=== PATIENT | female | born 1960 | race Hispanic/Latino ===

== ENCOUNTER 2016-09-01 07:36 | Observation (INO) | payer BC, MEDICAID ==
[2016-09-01 07:46] VITALS: BMI 32.5
--- NOTE | 2016-09-01 08:38 | C.PDOC ---
History Of Present Illness 56 yr old female presents to the ER with complaints of worsening abdominal pain for the past 1 week. Patient states she saw her PMD for same complaint and states she is s/p outpatient abdominal ultrasound but is pending follow up results. Patient states the pain is localized in lower abdominal and has had similar pain daily for the past 1 year but is now constant and intense. Patient reports new onset of intermittent diarrhea/constipation for the past 2 weeks and new onset of black bowel movement for the past 3 weeks. States he has been using peptobismol but black bowel movement began before pepto use. Patient is s/ p colonoscopy and ENDO, states had a polyp removal only. Patient denies fever, dysuria, incontinence, hematuira, back pain, weakness or numbness. WORSENING ABD PAIN X 1 WEEK. SAW PMD FOR SAME S/P OUTPT ABD US BUT WAS PENDING FU FOR RESULTS. PAIN LOWER ABD LOCALIZED. HAS HAD SIM PAIN DAILY X 1 YEAR BUT NOW MORE CONSTANT AND INTENSE. NEW ONSET INTERMIT DIARRHEA/CONSTIPATION X 2 WEEKS. NEW ONSET BLACK BM X 3 WEEKS. USING PEPTOBISMOL BUT BLACK BM ONSET BEGAN BEFORE PEPTO USE. S/P COLONSCOPY AND ENDO, PS POLYP REMOVAL ONLY. PSH YAQUELIN. DENIES UTI SX. HO MID ABD HERNIA FOR 6 MONTHS. DENIES PAIN IN AREA, LAST BM 2 DAYS AGO EXAM MILD DIST NONTOXIC LUNGS CTA B/L NO W/R/R ABD +REDUCIBLE VENTRAL HERNIA NONTEND. +B/L LQ TEND MILD SOFT NO R/G. OBESE REMAINDER NEG Time Seen by Provider: 09/01/16 08:25 Chief Complaint (Nursing): Abdominal Pain History Per: Patient History/Exam Limitations: no limitations Onset/Duration Of Symptoms: Worse Since (1 week ) Current Symptoms Are (Timing): Still Present Location Of Pain/Discomfort: Diffuse Past Medical History Reviewed: Historical Data, Nursing Documentation, Vital Signs Vital Signs: Last Vital Signs Temp 98.4 F 09/01/16 07:46 Pulse 84 09/01/16 09:30 Resp 16 09/01/16 09:30 BP 116/67 09/01/16 09:30 Pulse Ox 95 09/01/16 13:17 - Medical History PMH: Arthritis, Diverticulitis (diverticulosis) Surgical History: Cholecystectomy, Endoscopy - [facility] Procedures CHOLECYSTECTOMY (09/28/12) CLOSED ENDOSCOPIC BIOPSY OF LARGE INTESTINE (04/12/14) ENDO RECTUM POLYPECTOMY (04/12/14) ENDOSC POLYPECTOMY OF LG INTEST (04/12/14) ESOPHAGOGASTRODUODENOSCOPY [EGD] W/CLOSED BIOPSY (09/28/12) Family History: States: No Known Family Hx - Social History Hx Tobacco Use: Yes Hx Alcohol Use: Yes Hx Substance Use: No - Immunization History Hx Tetanus Toxoid Vaccination: No Hx Influenza Vaccination: No Hx Pneumococcal Vaccination: No Review Of Systems Except As Marked, All Systems Reviewed And Found Negative. Constitutional: Negative for: Fever Gastrointestinal: Positive for: Abdominal Pain, Diarrhea, Constipation Neurological: Negative for: Weakness, Numbness Physical Exam - Physical Exam Appears: Non-toxic, In Acute Distress (Mild ) Skin: Warm, Dry Head: Atraumatic, Normacephalic Chest: Symmetrical Cardiovascular: Rhythm Regular, No Murmur Respiratory: Normal Breath Sounds, No Rales, No Rhonchi, No Wheezing Gastrointestinal/Abdominal: Soft, Tenderness (Bilateral lower quadrent tenderness, mild. ), No Guarding, No Rebound, Hernia (reducible ventral hernia, non tender. ), Other ((+) Obese ) Extremity: Normal ROM, No Swelling Neurological/Psych: Oriented x3, Normal Speech, Normal Motor ED Course And Treatment - Laboratory Results Result Diagrams: 09/01/16 09:26 09/01/16 09:26 ECG: Interpreted By Me, Viewed By Wy ECG Rhythm: Sinus Rhythm ECG Interpretation: No Acute Changes Rate From EC (BPM ) O2 Sat by Pulse Oximetry: 95 (RA ) Pulse Ox Interpretation: Normal - Other Rad CXR X-Ray: Viewed By Wy, Read By Radiologist Interpretation: PROCEDURE: CHEST RADIOGRAPH, 1 VIEW. HISTORY: Abdominal pain. COMPARISON: 08/06/2014. FINDINGS: LUNGS: Biapical pleural thickening. Moderate venous congestion. Diffuse increased interstitial lung markings. Right hilar prominence. PLEURA: No pneumothorax or pleural fluid seen. CARDIOVASCULAR: Normal. OSSEOUS STRUCTURES: No significant abnormalities. VISUALIZED UPPER ABDOMEN: Normal. OTHER FINDINGS: None. IMPRESSION: Biapical pleural thickening. Moderate venous congestion. Diffuse increased interstitial lung markings. Right hilar prominence. - CT Scan/US CT - Abd & Pelvis Other Rad Studies (CT/US): Read By Radiologist, Radiology Report Reviewed CT/US Interpretation: PROCEDURE: CT Abdomen and Pelvis with contrast. HISTORY : abd pain. COMPARISON: 03/05/2015. TECHNIQUE: Contrast dose: 100 mL Visipaque 320. Radiation dose: Total exam DLP = 1203.84 mGy-cm. This CT exam was performed using one or more of the following dose reduction techniques: Automated exposure control, adjustment of the mA and/or kV according to patient size, and/or use of iterative reconstruction technique. FINDINGS: LOWER THORAX : Multifocal confluent ground-glass opacity in both lower lobes, nonspecific. Possibly infectious versus inflammatory. Small areas of héctor consolidation in both lower lobes. Small hiatal hernia noted. LIVER: Unremarkable. No gross lesion or ductal dilatation. GALLBLADDER AND BILE DUCTS: Status post cholecystectomy. Mild dilatation of common bile duct up to 9 mm. Consistent with prior cholecystectomy. Small amount of air seen adjacent to distal common bile duct, possibly due to duodenal diverticulum. This finding is unchanged compared to prior examination. PANCREAS: Unremarkable. No gross lesion or ductal dilatation. SPLEEN: Normal size. 1.5 cm ovoid low-attenuation lesion. In retrospect, on noncontrast CT, there was 12 mm low-attenuation lesion. Comparison is made between contrast enhanced and noncontrast study of, of limited significance for determination of interval change. Likely hemangioma or lymphangioma. No other mass. ADRENALS: Unremarkable. No mass. KIDNEYS AND URETERS: Unremarkable. No hydronephrosis. No solid mass. Homogeneous parenchymal enhancement. No evidence of pyelonephritis. VASCULATURE: Unremarkable. No aortic aneurysm. BOWEL: Acute diverticulitis at the junction of the descending and sigmoid colon. No evidence of abscess. No free intraperitoneal air. There is extensive diverticulosis of the descending and sigmoid colon. Scattered colonic diverticulae elsewhere. There are no other abnormal bowel loops identified. There is no evidence of bowel obstruction. APPENDIX: Normal appendix. PERITONEUM: There is a supraumbilical ventral hernia containing a loop of nonobstructed transverse colon. There is no inguinal hernia. LYMPH NODES: Unremarkable. No enlarged lymph nodes. BLADDER : Unremarkable. REPRODUCTIVE: Normal uterus. BONES: Mild thoracolumbar levoscoliosis. OTHER FINDINGS: None. IMPRESSION: Multifocal ground-glass opacity with small areas of confluent opacity in both lower lobes and in the right middle lobe. Concerning for an infectious process. Acute diverticulitis at the junction of the descending and sigmoid colon without evidence of abscess or free air. Incidental findings as above. Medical Decision Making Medical Decision Making: PLAN: * CT - Abd & Pelvis * CXR * EKG * CBC * CMP * Urinalysis * Morphine IVP * Zofran IVP * Sodium Chloride IV ED OBSERVATION Discharge: Yes Date of observation admission: 09/01/16 Time of observation admission: 08:00 - Observation admission statement Patient is being placed in observation because:: ABD PAIN, NAUSEA - Goals of Observation Goals of observation are:: NEG S/S ACUTE SURG ABD; SX IMPROVE - Progress Note Progress Note: 09/01/16 13:21 FEELS BETTER. ABD NEG VSS 09/01/16 13:[address] FINDINGS ADVISED FU LUNG CT FINDINGS W PMD Disposition Counseled Patient/Family Regarding: Studies Performed, Diagnosis, Need For Followup, Rx Given - Disposition Disposition: HOME/ ROUTINE Disposition Time: 13:21 Condition: IMPROVED - Clinical Impression Clinical Impression: Diverticulitis, Abnormal chest CT - Scribe Statement The provider has reviewed the documentation as recorded by the Shani Mac Provider Attestation: All medical record entries made by the Shani were at my direction and personally dictated by me. I have reviewed the chart and agree that the record accurately reflects my personal performance of the history, physical exam, medical decision making, and the department course for this patient. I have also personally directed, reviewed, and agree with the discharge instructions and disposition.
[2016-09-01] MEDS ORDERED: Iohexol 240 (50 ml) PO STA (08:46)
[2016-09-01] MEDS ORDERED: Sodium Chloride 0.9% 1,000 ML IV ONE (08:46)
[2016-09-01] MEDS ORDERED: Iohexol 240 (50 ml) ONE (08:58)
[2016-09-01] MEDS ORDERED: Morphine 4 MG/ML VIAL ONE (08:59)
[2016-09-01 09:30] LABS: BASO # 0.1 K/uL (0.0-0.2); BASO % 0.8 % (0.0-2.0); EOS # 0.1 K/uL (0.0-0.7); EOS % 2.2 % (0.0-4.0); HEMATOCRIT 44.2 % (34.0-47.0); LYMPH # 1.2 K/uL (1.0-4.3); LYMPH % 19.5 % (20.0-40.0); MEAN CORPUSCULAR HEMOGLOBIN 30.3 pg (27.0-31.0); MEAN CORPUSCULAR HGB CONC 34.5 g/dL (33.0-37.0); MEAN PLATELET VOLUME 7.9 fL (7.2-11.7); MONO # 0.6 K/uL (0.0-0.8); MONO % 9.3 % (0.0-10.0); NRBC % 0.1 % (0.0-2.0); RED CELL DISTRIBUTION WIDTH 13.3 % (11.5-14.5); WHITE BLOOD COUNT 6.1 K/uL (4.8-10.8)
[2016-09-01 09:31] VITALS: RESP 16
[2016-09-01 09:35] LABS: MEAN CELL VOLUME 87.9 fL (81.0-99.0)
[2016-09-01 09:37] LABS: CHLORIDE 102 mmol/L (98-107)
[2016-09-01 09:38] LABS: POTASSIUM 4.4 mmol/L (3.6-5.2); SODIUM 137 mmol/L (132-148)
[2016-09-01 09:40] LABS: ALB/GLOB RATIO 0.7 (1.0-2.1); ALKALINE PHOSPHATASE 93 U/L (38-126); ALT/SGPT 37 U/L (9-52); AST/SGOT 55 U/L (14-36); BILIRUBIN,TOTAL 0.8 mg/dL (0.2-1.3); BLOOD UREA NITROGEN 10 mg/dL (7-17); CARBON DIOXIDE 24 mmol/L (22-30); GFR AFRICAN-AMERICAN > 60; GLUCOSE,RANDOM 94 mg/dL (65-105); TOTAL PROTEIN 9.2 g/dL (6.3-8.3)
[2016-09-01 09:41] LABS: CALCIUM 9.3 mg/dl (8.6-10.4)
[2016-09-01 09:45] LABS: RBC URINE 1 /hpf (0-3); URINE BACTERIA RARE (<OCC); URINE BILIRUBIN NEGATIVE (NEGATIVE); URINE BLOOD NEGATIVE (NEGATIVE); URINE COLOR Yellow (YELLOW); URINE GLUCOSE (UA) NORMAL (Normal); URINE KETONE NEGATIVE (NEGATIVE); URINE LEUKOCYTE ESTERASE 2+ Leu/uL (Negative); URINE PROTEIN NEGATIVE (NEGATIVE); URINE UROBILINOGEN NORMAL mg/dL (0.2-1.0); WBC URINE 11 /hpf (0-5)
[2016-09-01] MEDS ORDERED: Iodixanol 320 MG/ML 100 ML BOTTLE IV ONE (10:38)
[2016-09-01 10:40] VITALS: O2SAT 95
--- NOTE | 2016-09-01 11:53 | RAD ---
PROCEDURE: CHEST RADIOGRAPH, 1 VIEW HISTORY: Abdominal pain COMPARISON: 08/06/2014 FINDINGS: LUNGS: Biapical pleural thickening. Moderate venous congestion. Diffuse increased interstitial lung markings. Right hilar prominence. PLEURA: No pneumothorax or pleural fluid seen. CARDIOVASCULAR: Normal. OSSEOUS STRUCTURES: No significant abnormalities. VISUALIZED UPPER ABDOMEN: Normal. OTHER FINDINGS: None. IMPRESSION: Biapical pleural thickening. Moderate venous congestion. Diffuse increased interstitial lung markings. Right hilar prominence.
--- NOTE | 2016-09-01 12:33 | CT ---
PROCEDURE: CT Abdomen and Pelvis with contrast HISTORY: abd pain COMPARISON: 03/05/2015 TECHNIQUE: Contrast dose: 100 mL Visipaque 320 Radiation dose: Total exam DLP = 1203.84 mGy-cm. This CT exam was performed using one or more of the following dose reduction techniques: Automated exposure control, adjustment of the mA and/or kV according to patient size, and/or use of iterative reconstruction technique. FINDINGS: LOWER THORAX: Multifocal confluent ground-glass opacity in both lower lobes, nonspecific. Possibly infectious versus inflammatory. Small areas of héctor consolidation in both lower lobes. Small hiatal hernia noted. LIVER: Unremarkable. No gross lesion or ductal dilatation. GALLBLADDER AND BILE DUCTS: Status post cholecystectomy. Mild dilatation of common bile duct up to 9 mm. Consistent with prior cholecystectomy. Small amount of air seen adjacent to distal common bile duct, possibly due to duodenal diverticulum. This finding is unchanged compared to prior examination PANCREAS: Unremarkable. No gross lesion or ductal dilatation. SPLEEN: Normal size. 1.5 cm ovoid low-attenuation lesion. In retrospect, on noncontrast CT, there was 12 mm low-attenuation lesion. Comparison is made between contrast enhanced and noncontrast study of, of limited significance for determination of interval change. Likely hemangioma or lymphangioma. No other mass. ADRENALS: Unremarkable. No mass. KIDNEYS AND URETERS: Unremarkable. No hydronephrosis. No solid mass. Homogeneous parenchymal enhancement. No evidence of pyelonephritis. VASCULATURE: Unremarkable. No aortic aneurysm. BOWEL: Acute diverticulitis at the junction of the descending and sigmoid colon. No evidence of abscess. No free intraperitoneal air. There is extensive diverticulosis of the descending and sigmoid colon. Scattered colonic diverticulae elsewhere. There are no other abnormal bowel loops identified. There is no evidence of bowel obstruction. APPENDIX: Normal appendix. PERITONEUM: There is a supraumbilical ventral hernia containing a loop of nonobstructed transverse colon. There is no inguinal hernia. LYMPH NODES: Unremarkable. No enlarged lymph nodes. BLADDER: Unremarkable. REPRODUCTIVE: Normal uterus BONES: Mild thoracolumbar levoscoliosis. OTHER FINDINGS: None. IMPRESSION: Multifocal ground-glass opacity with small areas of confluent opacity in both lower lobes and in the right middle lobe. Concerning for an infectious process. Acute diverticulitis at the junction of the descending and sigmoid colon without evidence of abscess or free air. Incidental findings as above.
[2016-09-01] MEDS ORDERED: metroNIDAZOLE IV 500 mg/100 ml 500 MG/100 ML BAG IV STA (13:18)
[2016-09-01] MEDS ORDERED: Ciprofloxacin 400mg/200ml D5W 400 MG/200 ML BAG IV STA (13:20)
[2016-09-01] MEDS ORDERED: Ciprofloxacin 400mg/200ml D5W 400 MG/200 ML BAG IVPB ONE (13:22)
[2016-09-01] MEDS ORDERED: metroNIDAZOLE IV 500 mg/100 ml 500 MG/100 ML BAG ONE (13:22)
[2016-09-01 14:09] VITALS: BP 125/60; PULSE 92; TEMP 98.3
[2016-09-01] MEDS ORDERED: Ciprofloxacin 400mg/200ml D5W 400 MG/200 ML BAG IV ONE (15:15)
--- NOTE | 2016-09-02 11:21 | CARD ---
APPROVED REPORT EKG Measurement Heart [id number] NM [id number] <Conclusion> Normal sinus rhythm Normal ECG
== END 2016-09-01 13:22 | disposition home or self-care (01) ==
LOC: C.ER 07:36 → C.9OBSV 08:30
PROVIDERS: ADMIT Emergency Medicine; ATTEND Emergency Medicine
DX: K57.92 Diverticulitis of intestine, part unspecified, without perforation or abscess without bleeding (principal); K59.00 Constipation, unspecified; Z87.891 Personal history of nicotine dependence
CPT/HCPCS: 36415; 71010; 74177; 80053; 81001; 83690; 85025; 86850; 86900; 87086; 93005; 96365; 96367; 96375; 99285; G0328; G0378; J0744; J2270; J2405; Q9966; Q9967

== ENCOUNTER 2016-11-23 07:13 | Day surgery (SDC) | payer MEDICAID ==
--- NOTE | 2016-11-23 08:32 | CP.SDSHP ---
Same Day Surgery H & P - History Proposed Procedure: Colonoscopy Pre-Op Diagnosis: H/o diverticulitis - Previous Medical/Surgical History Endocrine/Metabolic: Obesity - Allergies Allergies: Allergies No Known Allergies Allergy (Verified 09/01/16 07:42) - Physical Exam General Appearance: nl Vital Signs: Vital Signs 11/23/16 07:32 Temperature 97.9 F Pulse Rate 80 Respiratory 20 Rate Blood Pressure 117/68 O2 Sat by Pulse 97 Oximetry Mental Status: Alert & Oriented x3 Neuro: WNL Heart: WNL Lungs: WNL GI: WNL - {Optional Preform as Required} Abdomen: WNL Rectal: WNL - Impression Impression: h/o diverticulitis Pt. Evaluated Today:Candidate for Anesthesia & Procedure: Yes - Date & Time Date: 11/23/16 Time: 08:31 Short Stay Discharge - Short Stay Discharge Admitting Diagnosis/Reason for Visit: CONSTIPATION Disposition: HOME/ ROUTINE
[2016-11-23] MEDS ORDERED: Propofol 10 mg/ml Inj (20 ML) ONE (08:33)
[2016-11-23] MEDS ORDERED: Lactated Ringer's 500 ML IV ONE ×2 (08:41)
[2016-11-23] MEDS ORDERED: Lactated Ringer's 500 ML IV SCH (08:45)
[2016-11-23 09:11] VITALS: TEMP 97.1
[2016-11-23 09:54] VITALS: BP 110/74; PULSE 75; RESP 16; O2SAT 99
== END 2016-11-23 09:53 | disposition home or self-care (01) ==
LOC: C.ENDO 07:13
PROVIDERS: ATTEND Internal Medicine
DX: K57.90 Diverticulosis of intestine, part unspecified, without perforation or abscess without bleeding (principal); K59.00 Constipation, unspecified; K64.8 Other hemorrhoids
CPT/HCPCS: 45378; J2704; J3010; J7120

== ENCOUNTER 2017-03-31 12:06 | Inpatient (IN) | payer MEDICAID ==
[2017-03-31] MEDS ORDERED: Lactated Ringer's 1,000 ML IV ONE ×2 (13:25→16:00)
[2017-03-31] MEDS ORDERED: ceFAZolin IV 2 gm in Dextrose 2 GM/50 ML BAG IVPB ONE (13:29)
[2017-03-31] MEDS ORDERED: Midazolam 2 MG/2 ML VIAL ONE (13:36)
[2017-03-31] MEDS ORDERED: Propofol 10 mg/ml Inj (20 ML) ONE (13:37)
[2017-03-31] MEDS ORDERED: Neostigmine Methylsulfate 3mg/3ml Syringe IV ONE (14:20)
[2017-03-31] MEDS ORDERED: Rocuronium 10 mg/ml (10 ml) ONE (14:30)
[2017-03-31] MEDS ORDERED: ePHEDrine 50 mg/ml Inj ONE (14:32)
--- NOTE | 2017-03-31 14:51 | PCM.SURG1 ---
Surgeon's Initial Post Op Note - Surgeon's Notes Surgeon: Dr. Rivero Cryptographer: Claudio PGY1 Type of Anesthesia: General Endo Pre-Operative Diagnosis: Incisional Hernia Operative Findings: see operative report Post-Operative Diagnosis: Incisional hernia Operation Performed: Incisional hernia repair with Mesh Specimen/Specimens Removed: Hernia sac Estimated Blood Loss: EBL {In ML}: 20 Blood Products Given: N/A Drains Used: No Drains Post-Op Condition: Good Date of Surgery/Procedure: 03/31/17 Time of Surgery/Procedure: 13:30
[2017-03-31] MEDS: Oxycodone/Acetaminophen 5/325 mg Tab PO PRN (19:42)
[2017-04-01] MEDS: Oxycodone/Acetaminophen 5/325 mg Tab PO PRN ×3 (00:36→12:23)
--- NOTE | 2017-04-01 09:56 | CP.PCM.DIS ---
Provider - Provider Date of Admission: 03/31/17 12:06 Attending physician: Shirley Rivero MD Discharge Plan - Follow Up Plan Condition: GOOD Disposition: HOME/ ROUTINE
[2017-04-01] MEDS ORDERED: Pneumococcal 23-Valent Vaccine IM ONE (10:00)
[2017-04-01] MEDS ORDERED: Influenza Vaccine 60 mcg/0.5 mL SYR (4YR UP) IM ONE (10:00)
[2017-04-01] MEDS ORDERED: Pantoprazole 40 mg EC Tab PO SCH (10:00)
[2017-04-01 15:53] VITALS: BP 99/71; PULSE 81; RESP 18; TEMP 97.8; O2SAT 93
[2017-04-01] MEDS ORDERED: Enoxaparin 40 mg Syringe SC SCH (22:00)
--- NOTE | 2017-04-02 04:02 | OP ---
PROCEDURE DATE: 03/31/2017 SURGEON: Shirley Rivero MD GENERAL MAGISTRATE: Dr. Snyder. TYPE OF ANESTHESIA: General. PREOPERATIVE DIAGNOSIS: Incisional hernia. POSTOPERATIVE DIAGNOSIS: Incisional hernia. PROCEDURE: Incisional hernia repair with Prolene Hernia System mesh. DESCRIPTION OF OPERATION: With the patient in the supine position, the abdomen was prepped and draped in the usual sterile manner. The patient had a Carson incision in the right upper quadrant from a previous open cholecystectomy, and hernia was noted involving the medial end of the Carson incision. The skin was opened along the previous incision over the area of the hernia and taken down through the superficial subcutaneous tissue. The hernia sac was sharply freed from the surrounding subcutaneous tissue and partially cleared down to the level of the fascia. The hernia sac was then opened to better delineate the exact dimensions of the hernia. There was moderate amount of properitoneal fat, possibly related to the falciform ligament adjacent to the hernia, and a small amount of omentum actually adherent to the inner surface of the hernia sac. The omentum was freed up from the sac and returned to the peritoneal cavity. Palpation around the hernia revealed no other viscera adherent to the abdominal wall in the area of the hernia. The hernia sac was then freed up at the edges of the defect, which was just under 3 inches in diameter to allow a preperitoneal placement of the mesh, and excess hernia sac was excised at the level of the fascia. A large PHS mesh was then positioned within the defect and noted to cover the defect nicely on the inside with 2 cm of coverage both medially and laterally. [id number] sutures of 0 Prolene were placed at the medial and lateral ends of the defect to narrow the defect slightly, and these were tacked to allow later positioning of the outer layer of the mesh. When this had been completed, the stalk of the PHS mesh system was noted to fill the remaining defect. The upper edge of the stalk was then sutured circumferentially to the edges of the defect using interrupted sutures of 0 Prolene. The outer layer of mesh, which was oriented along the access of the old scar was fixed down to the fascia using the previously placed sutures as well. The operative site was examined for hemostasis. Subcutaneous tissue was approximated with 3-0 Vicryl sutures, and the skin was closed with bryant. Dry sterile dressing was applied. The patient tolerated the procedure well and transferred to recovery room in stable condition. Estimated blood loss for the procedure was 20 mL. Shirley Rivero MD
== END 2017-04-01 13:20 | disposition home or self-care (01) | DRG 160 ==
LOC: C.9S 12:06 → C.6T 19:06
PROVIDERS: ADMIT Specialist; ATTEND Specialist
PROC: 0WUF0JZ Supplement Abdominal Wall with Synthetic Substitute, Open Approach (ICD-10-PCS; principal; 2017-03-31 13:30)
DX: K43.2 Incisional hernia without obstruction or gangrene (principal); Z90.49 Acquired absence of other specified parts of digestive tract

== ENCOUNTER 2018-03-31 06:55 | Day surgery (SDC) | payer MEDICAID ==
[2018-03-30 13:16] VITALS: BMI 31.6
[2018-03-31 07:22] VITALS: TEMP 97.3
[2018-03-31] MEDS ORDERED: Propofol 10 mg/ml Inj (20 ML) ONE (08:05)
[2018-03-31] MEDS ORDERED: Lidocaine Hydrochloride 5 ML INJ ONE (08:05)
[2018-03-31] MEDS ORDERED: Lactated Ringer's 1,000 ML IV ONE (08:55)
[2018-03-31 13:37] VITALS: PULSE 88; RESP 20
[2018-03-31 13:41] VITALS: BP 104/70; O2SAT 98
== END 2018-03-31 10:37 | disposition home or self-care (01) ==
LOC: C.ENDO 06:55
PROVIDERS: ATTEND Internal Medicine Gastroenterology
DX: Z12.11 Encounter for screening for malignant neoplasm of colon (principal); K57.30 Diverticulosis of large intestine without perforation or abscess without bleeding; K64.1 Second degree hemorrhoids; K21.0 Gastro-esophageal reflux disease with esophagitis; K29.50 Unspecified chronic gastritis without bleeding; K44.9 Diaphragmatic hernia without obstruction or gangrene; K59.00 Constipation, unspecified; Z87.19 Personal history of other diseases of the digestive system; Z98.890 Other specified postprocedural states; Z90.49 Acquired absence of other specified parts of digestive tract; Z79.2 Long term (current) use of antibiotics; Z79.899 Other long term (current) drug therapy
CPT/HCPCS: 43239; 45378; 88305; 88312; 88342; J2704; J7120